=== PATIENT | female | born 2000 | race Two or more races ===

== ENCOUNTER 2021-05-18 21:39 | Emergency (ER) | payer MEDICAID, OTHER ==
[~2021-05-18] VITALS: Ht 162.6 cm; Wt 59.9 kg
[2021-05-18] MEDS ORDERED: IOHEXOL 300 MG/ML 100ML BOTTLE IJ ONE (23:09)
[2021-05-18] MEDS ORDERED: MORPHINE SULFATE 4 MG/ML SYR/VIAL IV ONE (23:45)
[2021-05-18 23:58] LABS: Basophils # (auto) 0.1 10 ^3/uL (0-0.2); Basophils % (auto) 0.4 % (0.0-2.0); Eosinophils # (auto) 0 10 ^3/uL (0-0.8); Eosinophils % (auto) 0.2 % (0.0-7.0); Hematocrit 39.6 % (36.0-46.0); Hemoglobin 13.6 g/dL (12.2-16.2); Lymphocytes # (auto) 1.3 10 ^3/uL (0.4-5.4); Lymphocytes % (auto) 7.4 % (10.0-50.0); Mean Corpuscular Hemoglobin 31.8 pg (28.0-32.0); Mean Corpuscular Hgb Conc. 34.3 g/dL (32.0-36.0); Mean Corpuscular Volume 92.7 fL (80.0-100.0); Monocytes # (auto) 1.1 10 ^3/uL (0-1.3); Monocytes % (auto) 6.4 % (0.0-12.0); Neutrophils # (auto) 14.7 10 ^3/uL (1.6-8.6); Neutrophils % (auto) 85.6 % (37.0-80.0); Red Blood Cells 4.28 10^6/uL (4.0-5.20); Red Cell Distribution Width 13.1 % (11.8-14.3); White Blood Cell 17.1 10^3/uL (4.4-10.8)
[2021-05-19 00:15] LABS: INR 1.05 (0.9-1.15); Partial Thromboplastin Time 30.4 sec (23.6-33.0)
[2021-05-19 00:30] LABS: Potassium 3.7 mmol/L (3.5-5.1)
[2021-05-19 00:35] LABS: Albumin 3.7 g/dL (3.4-5.0); BUN/Creatinine Ratio 17.9; Calcium 8.8 mg/dL (8.5-10.1)
[2021-05-19 00:37] LABS: Bilirubin, Total 0.3 mg/dL (0.2-1.0)
[2021-05-19] MEDS ORDERED: BACITRACIN TOP OINT 1 UD PKG TOP ONE ×2 (02:30)
[2021-05-19 03:57] VITALS: BP 98/55
== END 2021-05-19 04:47 | disposition home or self-care (01) ==
LOC: ER 21:39 → EDBD 21:39 → ER 05-19 04:47
DX: S93.402A Sprain of unspecified ligament of left ankle, initial encounter (principal); S00.31XA Abrasion of nose, initial encounter; S00.81XA Abrasion of other part of head, initial encounter; V86.59XA Driver of other special all-terrain or other off-road motor vehicle injured in nontraffic accident, initial encounter; Y93.89 Activity, other specified; Y92.89 Other specified places as the place of occurrence of the external cause; Y99.8 Other external cause status
CPT/HCPCS: 36415; 70450; 71045; 71260; 72125; 73140; 73600; 74177; 80053; 85025; 85610; 85730; 86850; 86900; 86901; 96374; 99285; J2270; Q9967

== ENCOUNTER 2023-05-08 03:29 | Emergency (ER) | payer MEDICAID ==
[~2023-05-08] VITALS: Ht 165.1 cm; Wt 60.1 kg
[2023-05-08 04:14] LABS: Basophils # (auto) 0 10 ^3/uL (0-0.2); Basophils % (auto) 0.4 % (0.0-2.0); Eosinophils # (auto) 0.1 10 ^3/uL (0-0.8); Eosinophils % (auto) 0.9 % (0.0-7.0); Hematocrit 42.6 % (36.0-46.0); Hemoglobin 14.2 g/dL (12.2-16.2); Lymphocytes # (auto) 1.9 10 ^3/uL (0.4-5.4); Lymphocytes % (auto) 14.3 % (10.0-50.0); Mean Corpuscular Hemoglobin 30.3 pg (28.0-32.0); Mean Corpuscular Hgb Conc. 33.4 g/dL (32.0-36.0); Mean Corpuscular Volume 90.7 fL (80.0-100.0); Monocytes # (auto) 0.9 10 ^3/uL (0-1.3); Monocytes % (auto) 6.7 % (0.0-12.0); Neutrophils # (auto) 10.5 10 ^3/uL (1.6-8.6); Neutrophils % (auto) 77.7 % (37.0-80.0); Nucleated Red Blood Cells % 0.1 %; Red Blood Cells 4.69 10^6/uL (4.0-5.20); Red Cell Distribution Width 13.1 % (11.8-14.3); White Blood Cell 13.5 10^3/uL (4.4-10.8)
[2023-05-08 04:18] LABS: Urine Bacteria MANY /hpf (None Seen); Urine Blood 3+ /uL (Negative); Urine Clarity HAZY (Clear); Urine Color Yellow (Yellow); Urine Mucus FEW (None Seen); Urine Protein, UAD 2+ (Negative); Urine Specific Gravity 1.013 (1.001-1.035); Urine Urobilinogen Normal (Negative); Urine WBC 168 /hpf (0 - 5); Urine WBC Clumps PRESENT /hpf (None Seen); Urine pH 6.5 (5.0-8.0)
[2023-05-08 04:23] LABS: Chloride 106 mmol/L (98-107); Potassium 3.7 mmol/L (3.5-5.1); Sodium 140 mmol/L (136-145)
[2023-05-08 04:24] LABS: Anion Gap 9 (5-15); Calcium 9.9 mg/dL (8.7-10.4); Carbon Dioxide 25 mmol/L (20-30)
[2023-05-08 04:29] LABS: BUN/Creatinine Ratio 11.5 (10.0-20.0); Blood Urea Nitrogen 9 mg/dL (9-23); Glucose 94 mg/dL (74-106); Lipase 46 U/L (12-53)
[2023-05-08] MEDS: SODIUM CHLORIDE 0.9% 1,000 ML IVB ONE (06:00)
[2023-05-08 06:54] LABS: Alanine Aminotransferase 9 U/L (7-40); Albumin 4.4 g/dL (3.2-4.8); Alkaline Phosphatase 69 U/L (46-116); Anion Gap 8 (5-15); Aspartate Aminotransferase 9 U/L (13-40); Blood Urea Nitrogen 8 mg/dL (9-23); Calcium 9.1 mg/dL (8.7-10.4); Carbon Dioxide 23 mmol/L (20-30); Chloride 109 mmol/L (98-107); Glucose 89 mg/dL (74-106); Lipase 42 U/L (12-53); Potassium 3.7 mmol/L (3.5-5.1); Sodium 140 mmol/L (136-145); Total Protein 6.9 g/dL (5.7-8.2)
[2023-05-08 06:58] LABS: BUN/Creatinine Ratio 10.8 (10.0-20.0)
[2023-05-08] MEDS: KETOROLAC TROMETH 30 MG/ML 1ML VIAL IV ONE (07:42)
[2023-05-08] MEDS ORDERED: NITR-87 PO (08:00)
[2023-05-08] MEDS: cefTRIAXone 1GM/50ML D5W 50 ML IV ONE (08:14)
[2023-05-08 08:20] VITALS: BP 96/47; PULSE 87; RESP 18; TEMP 98.1; O2SAT 99
== END 2023-05-08 08:59 | disposition home or self-care (01) ==
LOC: ER 03:29
DX: N39.0 Urinary tract infection, site not specified (principal); R10.2 Pelvic and perineal pain
CPT/HCPCS: 36415; 80048; 80053; 81001; 81025; 83605; 83690; 84702; 85025; 87040; 96361; 96365; 96375; 99284; J0696; J1885; J7030

== ENCOUNTER → 2024-11-29 | Outpatient (CLI) | payer MEDICAID ==
[~2024-11-29] MED LIST: NITR-87 PO
[2024-11-29 14:27] LABS: Hematocrit 44.6 % (36.0-46.0); Hemoglobin 15.5 g/dL (12.2-16.2); Mean Corpuscular Hemoglobin 31.3 pg (28.0-32.0); Mean Corpuscular Volume 90.1 fL (80.0-100.0); Nucleated Red Blood Cells % 0.0 %
[2024-11-29 14:51] LABS: Iron 102.0 ug/dL (50-170)
[2024-11-29 14:54] LABS: Total Iron Binding Capacity 385.0 ug/dL (250-425)
[2024-11-29 14:55] LABS: Alanine Aminotransferase 10 U/L (7-40); Albumin 5.3 g/dL (3.2-4.8); Alkaline Phosphatase 80 U/L (46-116); Anion Gap 12 (5-15); BUN/Creatinine Ratio 12.9 (10.0-20.0); Beta HCG, Quantitative 0.1 mIU/mL (1.5-4.2); Bilirubin, Direct 0.2 mg/dL (<0.3); Bilirubin, Total 0.6 mg/dL (0.2-1.0); Blood Urea Nitrogen 11 mg/dL (9-23); Calcium 9.9 mg/dL (8.7-10.4); Carbon Dioxide 26 mmol/L (20-31); Chloride 104 mmol/L (98-107); Glucose 83 mg/dL (74-106); Potassium 3.9 mmol/L (3.5-5.1); Sodium 142 mmol/L (136-145); Total Protein 8.4 g/dL (5.7-8.2)
[2024-11-29 14:58] LABS: Free T4 (Free Thyroxine) 1.13 ng/dL (0.89-1.76); Thyroid Stimulating Hormone 1.78 uIU/mL (0.55-4.78)
[2024-11-29 14:59] LABS: Follicle Stimulating Hormone 8.19 IU/L (SEE BELOW)
[2024-12-01 04:06] LABS: Chlamydia Trachomatis, NAA Negative (Negative); Neisseria gonorrhoeae, NAA Negative (Negative)
== END | disposition home or self-care (01) ==
LOC: LAB 13:49
DX: N93.9 Abnormal uterine and vaginal bleeding, unspecified (principal)
CPT/HCPCS: 36415; 80053; 80069; 80076; 82626; 82670; 83001; 83002; 83525; 83540; 83550; 84270; 84402; 84403; 84439; 84443; 84702; 85025; 86703; 86780; 86850; 86900; 86901; 87086; 87902